=== PATIENT | male | born 1995 | race Caucasian/White ===

== ENCOUNTER → 2017-04-07 | Outpatient (CLI) | payer OTHER ==
[~2017-04-07] VITALS: Ht 182.9 cm; Wt 136.0 kg
[~2017-04-07] MED LIST: ADDERALL XR 3030 MG PO; ADDERALL XR25 MG PO; ADDERALL30 MG PO; AUGMENTIN875 MG PO; AZITHROMYCIN500 M1 PO; BENADRYL50 MG PO; CEFDINIR300 MG PO; FLEXERIL5 MG PO; IBUPROFEN100 M2 PO; IBUPROFEN800 MG PO; KEFLEX500 MG PO; LIDOCAINE20 MG/1 M5 PO; MEDROL DOSEPAK4 MG PO; MOTRIN800 MG PO; NAPROSYN500 MG PO; NORCO 5/3251 TABLET PO; NORCO 7.5/321 TABLET PO; PERCOCET 5/31 TABLET PO; SUMATRIPTAN SU100 MG PO; TOPIRAMATE25 MG PO; TYLENOL WITH C1 EACH PO; ZANTAC150 MG PO
== END | disposition home or self-care (01) ==
LOC: AMB 09:00
DX: K76.0 Fatty (change of) liver, not elsewhere classified (principal); R16.0 Hepatomegaly, not elsewhere classified; E78.1 Pure hyperglyceridemia; K58.0 Irritable bowel syndrome with diarrhea; K80.20 Calculus of gallbladder without cholecystitis without obstruction
CPT/HCPCS: 88305; J0330; J2250; J2405; J3010

== ENCOUNTER 2017-07-14 15:34 | Emergency (ER) | payer OTHER ==
[~2017-07-14] VITALS: Ht 193 cm; Wt 138.6 kg
[2017-07-14 19:48] VITALS: BP 158/97
== END 2017-07-14 19:49 | disposition home or self-care (01) ==
LOC: EME 15:34
PROC: 0HQEXZZ Repair Left Lower Arm Skin, External Approach (ICD-10-PCS; principal; 2017-07-14)
DX: S61.512A Laceration without foreign body of left wrist, initial encounter (principal); W26.8XXA Contact with other sharp object(s), not elsewhere classified, initial encounter; Y93.89 Activity, other specified; F90.9 Attention-deficit hyperactivity disorder, unspecified type
CPT/HCPCS: 73110; 99281; 99283

== ENCOUNTER 2017-10-11 12:51 | Day surgery (SDC) | payer OTHER ==
[~2017-10-11 12:51] MED LIST changes: +CYCLOBENZAPRINE10 MG PO
[2017-10-13] MEDS ORDERED: TRIGLIDE160 MG PO (08:55)
[2017-10-13] MEDS ORDERED: GABAPENTIN300 MG PO (08:56)
[2017-10-13] MEDS ORDERED: CREON 241 CAPSULE PO (08:56)
== END 2017-10-11 15:48 | disposition home or self-care (01) ==
LOC: PAIN 12:51 → SDC 13:15 → PAIN 15:48
DX: M47.816 Spondylosis without myelopathy or radiculopathy, lumbar region (principal); M54.5 Low back pain
CPT/HCPCS: J1030; J2250; S0020

== ENCOUNTER 2017-10-18 09:09 | Day surgery (SDC) | payer OTHER ==
[~2017-10-18] VITALS: Ht 193 cm; Wt 131.5 kg
[~2017-10-18 09:09] MED LIST changes: +CREON 241 CAPSULE PO; +GABAPENTIN300 MG PO; +TRIGLIDE160 MG PO
== END 2017-10-18 10:50 | disposition home or self-care (01) ==
LOC: PAIN 09:09 → SDC 09:30 → PAIN 09:30
DX: M47.816 Spondylosis without myelopathy or radiculopathy, lumbar region (principal); M51.36 Other intervertebral disc degeneration, lumbar region; M54.16 Radiculopathy, lumbar region; F90.2 Attention-deficit hyperactivity disorder, combined type; E78.1 Pure hyperglyceridemia; G47.30 Sleep apnea, unspecified; Z77.22 Contact with and (suspected) exposure to environmental tobacco smoke (acute) (chronic)
CPT/HCPCS: J1030; J2250; S0020

== ENCOUNTER 2017-10-31 20:45 | Observation (INO) | payer OTHER ==
[~2017-10-31] VITALS: Ht 193 cm; Wt 140.3 kg
[2017-10-31 21:38] LABS: BASOPHIL (%) 0.4 % (0-1); EOSINOPHIL (%) 1.3 % (0-5); EOSINOPHIL COUNT 0.1 K/uL (0-0.3); HEMATOCRIT 42.2 % (38.0-50.0); HEMOGLOBIN 14.8 G/DL (12.5-16.6); IMMATURE GRANULOCYTE (%) 0.4 % (0.0-0.7); LYMPHOCYTE (%) 37.9 % (15-42); LYMPHOCYTE COUNT 3.2 K/uL (1.0-2.8); MCH 29.4 PG (29.0-34.0); MCHC 35.1 G/DL (30.0-36.0); MCV 83.7 FL (86-99); MONOCYTE COUNT 0.6 K/uL (0-0.8); NEUTROPHIL COUNT 4.5 K/uL (1.8-6.4); PLATELET COUNT 218 K/uL (156-360); RBC DIS.WIDTH-CV 12.6 % (11.8-14.6); RBC DIS.WIDTH-SD 38.3 % (39-53); RED BLOOD COUNT 5.04 M/uL (4.00-5.50); WHITE BLOOD COUNT 8.6 K/uL (4.1-10.2)
[2017-10-31 21:44] LABS: INTER. NORMALIZED RATIO 1.1
[2017-10-31 21:54] LABS: CHLORIDE 106 mEq/L (99-109); POTASSIUM 3.8 mEq/L (3.7-5.4); SODIUM 137 mEq/L (136-147)
[2017-10-31 21:55] LABS: MAGNESIUM 2.2 mg/dL (1.3-2.7)
[2017-10-31 21:56] LABS: GLUCOSE 104 mg/dL (70-99)
[2017-10-31 21:58] LABS: TROP-I INTERPRETATION NEGATIVE; TROPONIN-I 0.03 ng/mL (0.0-0.30)
[2017-10-31 22:00] LABS: CREATININE 0.9 mg/dL (0.6-1.3); GFR ESTIMATE (CALCULATED) > 59 mL/min/ (58.99-99999)
[2017-10-31 22:01] LABS: UREA NITROGEN (BUN) 12 mg/dL (9-23)
[2017-10-31 23:02] LABS: AMPHETAMINE NEGATIVE (500 ng/mL); BARBITURATES NEGATIVE (200 ng/mL); BENZODIAZEPINES NEGATIVE (150 ng/mL); BUPRENORPHINE NEGATIVE (10 ng/mL); COCAINE NEGATIVE (150 ng/mL); METHADONE NEGATIVE (200 ng/mL); METHAMPHETAMINE NEGATIVE (500 ng/mL); OPIATES (MORPHINE) NEGATIVE (100 ng/mL); OXYCODONE NEGATIVE (100 ng/mL); PHENCYCLIDINE NEGATIVE (25 ng/mL); PROPOXYPHENE NEGATIVE (300 ng/mL); THC CANNABINOIDS NEGATIVE (50 ng/mL); TRICYCLIC ANTIDEPRESSANTS NEGATIVE (300 ng/mL)
[2017-10-31] MEDS ORDERED: LYRICA50 MG PO (23:07)
[2017-10-31] MEDS ORDERED: STEROID INJECTION (23:10)
[2017-11-01 02:10] LABS: HDL CHOLESTEROL 27 MG/DL (Desirable>=40); NON-HDL CHOLESTEROL 240 mg/dL (Desirable<160); TOTAL CHOLESTEROL 267 mg/dL (Desirable<200); TRIGLYCERIDES 531 MG/DL (Normal: <150)
[2017-11-01 04:52] LABS: HEMATOCRIT 40.4 % (38.0-50.0); HEMOGLOBIN 14.2 G/DL (12.5-16.6); MCH 29.8 PG (29.0-34.0); MCHC 35.1 G/DL (30.0-36.0); MCV 84.9 FL (86-99); PLATELET COUNT 187 K/uL (156-360); RBC DIS.WIDTH-CV 12.6 % (11.8-14.6); RBC DIS.WIDTH-SD 38.9 % (39-53); RED BLOOD COUNT 4.76 M/uL (4.00-5.50); WHITE BLOOD COUNT 7.6 K/uL (4.1-10.2)
[2017-11-01 05:01] LABS: ALBUMIN 4.2 g/dL (3.2-4.8); CHLORIDE 107 mEq/L (99-109); POTASSIUM 4.1 mEq/L (3.7-5.4); SODIUM 138 mEq/L (136-147)
[2017-11-01 05:03] LABS: GLUCOSE 100 mg/dL (70-99); TOTAL PROTEIN 7.1 g/dL (6.4-8.3)
[2017-11-01 05:05] LABS: TOTAL BILIRUBIN 0.7 mg/dL (0.0-1.0)
[2017-11-01 05:07] LABS: ALKALINE PHOSPHATASE 69 IU/L (3-129); CREATININE 0.8 mg/dL (0.6-1.3); GFR ESTIMATE (CALCULATED) > 59 mL/min/ (58.99-99999)
[2017-11-01 05:08] LABS: UREA NITROGEN (BUN) 11 mg/dL (9-23)
[2017-11-01 05:09] LABS: AST (GOT) 66 IU/L (2-34)
[2017-11-01 05:10] LABS: ALT (GPT) 214 IU/L (3-49)
[2017-11-01 05:14] LABS: TROP-I INTERPRETATION NEGATIVE; TROPONIN-I 0.18 ng/mL (0.0-0.30)
[2017-11-01 15:02] VITALS: BP 128/76
[2017-11-01 19:48] VITALS: BP 119/67
[2017-11-02 00:07] VITALS: BP 148/77
[2017-11-02 04:07] VITALS: BP 163/91
[2017-11-02 04:08] VITALS: BP 163/91
[2017-11-02 06:25] LABS: BASOPHIL (%) 0.4 % (0-1); EOSINOPHIL (%) 1.4 % (0-5); EOSINOPHIL COUNT 0.1 K/uL (0-0.3); HEMATOCRIT 43.6 % (38.0-50.0); HEMOGLOBIN 14.8 G/DL (12.5-16.6); IMMATURE GRANULOCYTE (%) 0.3 % (0.0-0.7); LYMPHOCYTE (%) 43.4 % (15-42); MCH 28.9 PG (29.0-34.0); MCHC 33.9 G/DL (30.0-36.0); MCV 85.2 FL (86-99); MONOCYTE (%) 8.5 % (3-12); MONOCYTE COUNT 0.6 K/uL (0-0.8); NEUTROPHIL COUNT 3.2 K/uL (1.8-6.4); PLATELET COUNT 203 K/uL (156-360); RBC DIS.WIDTH-CV 12.3 % (11.8-14.6); RBC DIS.WIDTH-SD 38.5 % (39-53); RED BLOOD COUNT 5.12 M/uL (4.00-5.50)
[2017-11-02 06:40] LABS: TROP-I INTERPRETATION NEGATIVE; TROPONIN-I 0.04 ng/mL (0.0-0.30)
[2017-11-02 07:32] LABS: CHLORIDE 104 MEQ/L (99-109); CREATININE 0.8 MG/DL (0.6-1.3); GFR ESTIMATE (CALCULATED) > 59 mL/min/ (58.99-99999); GLUCOSE 103 mg/dL (70-99); POTASSIUM 4.3 MEQ/L (3.7-5.4); SODIUM 139 MEQ/L (136-147); UREA NITROGEN (BUN) 10 mg/dL (9-23)
[2017-11-02 07:35] VITALS: BP 127/74
[2017-11-02 11:42] LABS: HEPATITIS B SURFACE ANTIGEN Nonreactive; HEPATITIS C ANTIBODY Nonreactive
[2017-11-02 11:43] LABS: ANTI-HEPATITIS A VIRUS (IGM) Nonreactive
[2017-11-02 11:44] LABS: ANTI-HEPATITIS B CORE (IGM) Nonreactive
[2017-11-02 13:20] VITALS: BP 130/70
[2017-11-02] MEDS ORDERED: ATORVASTATIN CA80 MG PO (13:29)
[2017-11-02] MEDS ORDERED: CALAN SR,COVER180 MG PO (13:29)
== END 2017-11-02 14:05 | disposition home or self-care (01) ==
LOC: EME → EDBD 20:45 → EDOF 23:22 → 5WEST 23:22 → EDOF 23:22 → ENRESERV 23:25 → 5WEST 11-01 14:41
PROVIDERS: Emergency Medicine; Hospitalist; Student in an Organized Health Care Education/Training Program
DX: I47.2 Ventricular tachycardia (principal); R07.9 Chest pain, unspecified; E78.5 Hyperlipidemia, unspecified; E66.9 Obesity, unspecified; F90.9 Attention-deficit hyperactivity disorder, unspecified type; E88.81 Metabolic syndrome and other insulin resistance; R79.89 Other specified abnormal findings of blood chemistry; E78.1 Pure hyperglyceridemia; K76.0 Fatty (change of) liver, not elsewhere classified; Z79.899 Other long term (current) drug therapy; Z82.49 Family history of ischemic heart disease and other diseases of the circulatory system
CPT/HCPCS: 71045; 71275; 80048; 80053; 80061; 80074; 83735; 84484; 85025; 85027; 85610; 85730; 93005; 93306; 99281; 99285; G0378; J1650; J7030; J7120

== ENCOUNTER 2017-11-02 17:05 | Emergency (ER) | payer OTHER ==
[~2017-11-02 17:05] MED LIST changes: +ATORVASTATIN CA80 MG PO; +CALAN SR,COVER180 MG PO; +LYRICA50 MG PO; +STEROID INJECTION
== END 2017-11-02 17:20 | disposition left against medical advice (07) ==
LOC: EME 17:05
DX: R07.89 Other chest pain (principal); Z53.21 Procedure and treatment not carried out due to patient leaving prior to being seen by health care provider
CPT/HCPCS: 93005